=== PATIENT | female | born 1960 | race Two or more races ===

== ENCOUNTER → 2017-01-23 | Outpatient (CLI) | payer BC ==
--- NOTE | ~2017-01-23 | MY29 ---
[facility] A Service of [facility] RADIOLOGY TEXT RESULTS PATIENT: CHANDU FLOYD LOCATION: [facility] : 64 UNIT #: [id number] AGE: [address]: Shar Hill MD SEX: F ORDER DR: [id number] [facility] [address] [place], [place] [address] [id number] O MR#: [id number] #: [id number] NAME: CHANDU FLOYD : 1960 SEX: F STUDY DATE/TIME: 01/23/2017 12:13 UNIT: [facility] ROOM: STUDY DESCRIPTION: MY LIA SCREENING W/ CAD BILAT Attending Physician: Shar Hill M.D. Referring Physician: Shar Hill M.D. Ordering Physician: Shar Hill M.D. Primary Care Physician: Shar Hill M.D. MEDICAL IMAGING REPORT This report is preliminary unless electronic signature is present EXAM Digital screening mammogram, 01/23/2017 HISTORY 57 year old woman no risk elevation. Annual screening. COMPARISON 02/07/2009, 05/25/2011, 06/23/2014 FINDINGS Digital imaging of each breast was completed utilizing screening protocol. Review includes FDA approved CAD device. Breast parenchyma remains dense with a generalized small nodular parenchymal pattern in each breast. Subareolar duct prominence is again noted bilaterally. There are faint punctate microcalcifications dominant in the left breast. I see no suspicious mass characteristics and no suspicious microcalcifications or architectural distortion. IMPRESSION Benign mammogram. Annual screening recommended. Patients over the age of 40 are entered into a reminder system with target due date for the next mammogram. A result letter will also be sent to the patient. BIRADS: 2 Benign Finding Dictated by... Esau Suazo M.D. THIS IS AN ELECTRONICALLY VERIFIED REPORT Esau Suazo M.D. at 01/23/2017 3:17 PM DANNY/caroline [facility] A Service of [facility] RADIOLOGY TEXT RESULTS PATIENT: CHANDU FLOYD LOCATION: [facility] : 64 UNIT #: [id number] AGE: [address]: Shar Hill MD SEX: F ORDER DR: TD: 01/23/2017 14:18 JOB #: [id number] MEDICAL IMAGING REPORT Page 1 of 1 COPY
== END | disposition home or self-care (01) ==
LOC: CWCC 11:56
DX: Z12.31 Encounter for screening mammogram for malignant neoplasm of breast (principal)
CPT/HCPCS: G0202